=== PATIENT | male | born 1960 | race Caucasian/White ===

== ENCOUNTER 2016-07-24 21:24 | Emergency (ER) | payer OTHER ==
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
[2016-07-24 22:17] LABS: Hematocrit 44.1 % (42.0-52.0); Hemoglobin 15.4 gm/dL (13.5-18.0); Mean Cell Volume 86.8 fl (78-100); Mean Corpuscular Hemoglobin 30.3 pg (27-31); Mean Corpuscular Hgb Conc 34.9 g/dl (32-36); Mean Platelet Volume 9.5 fl (6.0-9.5); Neutrophil # 7.3 K/mm3 (1.3-6.0); Neutrophil % 73.3 % (42-75.0); Platelet Count 268 K/mm3 (150-450); Red Blood Count 5.08 M/mm3 (4.7-6.0); Red Cell Distribution Width 12.3 % (11.5-14.0)
[2016-07-24 22:30] LABS: Albumin * 3.9 gm/dl (3.4-5.0); Anion Gap 12.4 mmol/L (6.8-13.8); BUN/Creatinine Ratio 17.5 (9.0-21.6); Bilirubin, Total 0.4 mg/dL (0.0-1.1); Ca. Corrected For Albumin 8.8 mg/dL (8.4-10.2); Carbon Dioxide 28.5 mmol/L (24-32.6); Potassium 3.9 mmol/L (3.4-4.6); Total Protein 7.7 gm/dL (6.2-8.2)
[2016-07-24 23:01] LABS: Urine Bilirubin Negative (NEGATIVE); Urine Blood 250 /ul (NEGATIVE); Urine Ketone Negative (NEGATIVE); Urine Nitrite Negative (NEGATIVE); Urine Protein 100 mg/dL (NEGATIVE); Urine Specific Gravity >=1.030 SP.GR. (1.005-1.030); Urine Urobilinogen Normal (NORMAL); Urine pH 5.5 pH (5.0-7.0)
[2016-07-24 23:10] LABS: Urine Appearance Clear; Urine Bacteria 2+; Urine Color Dark Yellow; Urine Fine Granular Cast 0-5 /LPF; Urine WBC None Seen /hpf (0-5)
[2016-07-24 23:11] LABS: Urine Mucus Few - 1+
[2016-07-24] MEDS ORDERED: IBUPROFEN 400 MG TABLET PO ONE (23:52)
[2016-07-24] MEDS ORDERED: IBUPROFEN 400 MG TABLET ONE (23:53)
[2016-07-25 01:47] VITALS: BP 133/85
== END 2016-07-25 00:55 | disposition home or self-care (01) ==
LOC: ER 21:24
DX: S30.1XXA Contusion of abdominal wall, initial encounter (principal); Z87.891 Personal history of nicotine dependence; V89.2XXA Person injured in unspecified motor-vehicle accident, traffic, initial encounter

== ENCOUNTER 2017-02-22 06:54 | Day surgery (SDC) | payer OTHER ==
[~2017-02-22 06:54] MED LIST: RINGER'S SOLUTION,LACTATED 1,000 ML IV PRN; ceFAZolin SODIUM 1 GM VIAL IV PRN
[2017-02-22] MEDS ORDERED: RINGER'S SOLUTION,LACTATED 1,000 ML IV ONE (07:20)
--- NOTE | 2017-02-22 09:11 | OR ---
Anesthesia Procedure Note - Anesthesia Procedure Note Date of Service: 02/22/17 Narrative: Vital Signs - Last Taken Temp 36.5 C 02/22/17 09:00 Pulse 68 02/22/17 09:00 Resp 15 02/22/17 09:00 BP 143/73 02/22/17 09:00 Pulse Ox 96 02/22/17 09:00 O2 Oxygen Delivery Method Nasal Cannula 02/22/17 09:09 ANESTHESIA PROCEDURE NOTE Date of Procedure: 02/22/2017 Time of procedure: 7:35 AM. Performed by: OPAL Abrams CRNA, MSN Bandoleer Packer: Adelia Valenzuela RN. Preprocedure diagnosis: Rate shoulder surgery, desired pain relief postop.. Post procedure diagnosis: Same. Procedure: Right Interscalene nerve block. Indications: Post shoulder surgery, rotator cuff repair pain relief. Findings: See below. Details of the procedure: The patient was brought to OR #4 and placed in semi- Fowlers position. The patient was prepped with chlorhexidine and using ultrasound guidance the right interscalene segment of the brachial plexus was identified and lidocaine 1% was infiltrated to the skin of the intended injection site. Under ultrasound guidance the interscalene nerve bundles were approached with visualization of a 2inch stimulator needle visualized unde ultrasound until a shoulder/arm response was identified on nerve stimulator. Once the stimulator response was effective at less than 0.5 mV and greater than 0.3 mV the femoral nerve was surrounded with 30 mL bupivacaine 0.5% with 1-200, 000 epinephrine. Please see radiology/ultrasound report for details and retained images of the procedure. EBL: 0 Fluids: N/A. Specimen: N/A. Post procedure condition: The patient tolerated the procedure well. No complications were noted. Thank you for this consultation. Moshe Cheatham CRNA, GORE SEAMER, MSN
--- NOTE | 2017-02-22 09:13 | OR ---
Operative Report - Dictated Report Narrative: Date: 02/22/2017 Physician: Sd Allen M.D. Dairy Feed Mixing Operator: Zak Alvarez PA-C Preoperative diagnosis: Right Shoulder biceps tear, supraspinatus tear Postoperative diagnosis: Right Shoulder biceps tear, SLAP tear, full-thickness supraspinatus tear Procedure: Right shoulder arthroscopy with biceps tenotomy, rotator cuff debridement Anesthesia: General plus regional Complications: None Estimated blood loss: Minimal Specimens: None Retained implants: None Drains: None Indications: Petros Is a 57 year-old male who has been followed in my clinic with complaints of shoulder pain consistent with long head of the biceps tendon tear. Physical exam and diagnostic imaging were consistent with his complaints and concern for long head of the biceps tendon tear as well as full-thickness supraspinatus tear. Conservative measures have failed including, but not limited to, passage of time, activity modification, medications, physical therapy/home exercise program, or injections. The risks, benefits, and alternatives were discussed in clinic. The risks being , bleeding, infection, blood clots, nerve, tendon, ligament, blood vessel injury, persistent pain, arthrosis, stiffness, need for prolonged therapy, need for additional procedures, and persistent symptoms. Consent was obtained in the clinic. Procedure: After marking the correct extremity in the preoperative holding area, a timeout was performed in the operating room. IV antibiotics consisting of 2 g of Ancef were administered prior to the procedure. A general followed by regional anesthetic was induced by the nurse underwriting technician. This was in the supine position, then the patient was transitioned to a beachchair position with all bony prominences well-padded, head in neutral, the nonoperative arm well supported, and the legs padded with SCDs in place. The operative shoulder was then prepped and draped in a standard sterile fashion. Preoperatively the shoulder had full passive range of motion, and no instability. After marking out the bony landmarks, saline was infused into the joint through a posterior lateral portal site. A joanne incision was made, and the blunt trocar and cannula was introduced into the shoulder joint. An anterior working portal was placed in the rotator cuff interval using a spinal needle for guidance. Upon initial evaluation, the biceps tendon showed extensive tearing and fraying at the bicipital anchor. The middle glenohumeral ligament was intact. Subscapularis tendon demonstrated some intrasubstance tearing but intact footprint. The glenoid showed grade 1 chondral changes. The humeral head articular surface showed and no significant chondral changes. The anterior labrum was frayed but intact. The superior labrum demonstrated a type II tear. The pouch was of normal caliber with no loose bodies. The posterior labrum was frayed but intact. The supraspinatus tendon demonstrated a full-thickness crescent shaped tear. The infraspinatus tendon was intact. Based on the arthroscopic findings, as well as exam and radiographic findings, it was elected to proceed only with biceps tenotomy and rotator cuff debridement. A 4.0 mm shaver was introduced through the anterior portal and used 2 tenotomize was left of the biceps tendon and debrided the stump at the biceps anchor. The articular side of the supinator tendon was partially debrided. Attention was then turned to the subacromial space. Subacromial bursectomy was performed utilizing the prior portals. The coracoacromial ligament was extensively frayed. The bursal side of the rotator cuff demonstrated and the aforementioned full-thickness crescent shaped tear of the supraspinatus. The acromial arch demonstrated normal morphology with no anterior hooking. Additional light debridement was performed on the super spinatus tendon as well as the frayed coracoacromial ligament. This probably felt we had addressed all the intra-articular pathology is discussed with the patient and the remaining fluid was evacuated from the shoulder and all arthroscopic instruments were removed. Portal sites were closed with interrupted nylon. Dressings consisting of Xeroform, 4 x 4, ABD, soft roll, and tape were applied. All sponge, needle, blade, and instrument counts were correct prior to closing the wounds. The patient was awoken and transferred to the postanesthesia care unit in stable condition.
[2017-02-22 10:49] VITALS: BP 143/81
== END 2017-02-22 06:55 | disposition home or self-care (01) ==
LOC: AMB 06:54
PROVIDERS: ATTEND Orthopaedic Surgery
PROC: 3E0T3BZ Introduction of Anesthetic Agent into Peripheral Nerves and Plexi, Percutaneous Approach (ICD-10-PCS; 2017-02-22)
PROC: 0RBJ4ZZ Excision of Right Shoulder Joint, Percutaneous Endoscopic Approach (ICD-10-PCS; principal; 2017-02-22 08:00)
DX: M75.101 Unspecified rotator cuff tear or rupture of right shoulder, not specified as traumatic (principal); S43.431D Superior glenoid labrum lesion of right shoulder, subsequent encounter; S46.211D Strain of muscle, fascia and tendon of other parts of biceps, right arm, subsequent encounter; Z68.36 Body mass index [BMI] 36.0-36.9, adult